=== PATIENT | female | born 1995 | race Caucasian/White ===

== ENCOUNTER → 2016-12-01 | Outpatient (CLI) | payer BC ==
[~2016-12-01] MED LIST: AMOX250C3 PO; AZEL0.15 NAE; BCPILLS PO; CETI10TA10 PO; FLUT0.15 NAE; ONDA4TAB10 SL; PANT40TA PO; PREDPOW63 PO
== END | disposition home or self-care (01) ==
LOC: C.RDSM 09:00
PROVIDERS: ATTEND Physical Medicine & Rehabilitation
DX: M54.5 Low back pain (principal)

== ENCOUNTER 2016-12-18 16:02 | Emergency (ER) | payer BC ==
[~2016-12-18] VITALS: Ht 165.1 cm; Wt 49.7 kg
[~2016-12-18 16:02] MED LIST changes: -AMOX250C3 PO; -AZEL0.15 NAE; -BCPILLS PO; -CETI10TA10 PO; -ONDA4TAB10 SL; -PANT40TA PO
[2016-12-18 16:19] VITALS: Ht 165.1 cm; Wt 49.7 kg
[2016-12-18 16:43] VITALS: O2SAT 95
[2016-12-18] MEDS ORDERED: SODIUM CHLORIDE 0.9% 500ML 500 ML IV STA (17:13)
[2016-12-18] MEDS ORDERED: SODIUM CHLORIDE 0.9% 1000ML 1,000 ML IV STA (17:13)
[2016-12-18 17:24] LABS: BASO % 0.4 %; BASO ABS # 0.02 K/uL (0-0.2); COMPLETE YES; EOS % 4.4 %; HEMATOCRIT 42.3 % (37-47); IG% 0.5 %; LYMPH % 18.8 %; LYMPH ABS # 1.07 K/uL (1.2-3.4); MEAN CELL VOLUME 91.8 fL (80-100); MEAN CORPUSCULAR HEMOGLOBIN 31.9 pg (25-34); MEAN CORPUSCULAR HGB CONC 34.8 g/dl (32-36); MEAN PLATELET VOLUME 11.4 fL (7.4-10.4); MONO % 10.4 %; NEUT % 65.5 %; PLATELET COUNT 233 K/uL (130-400); RED BLOOD COUNT 4.61 M/uL (4.2-5.4); WHITE BLOOD COUNT 5.69 K/uL (4.8-10.8)
[2016-12-18 17:33] LABS: URINE APPEARANCE CLOUDY (CLEAR); URINE BILIRUBIN NEG (NEG); URINE COLOR YELLOW; URINE EPITHELIAL CELL AUTO >30 /lpf (0-5); URINE NITRITE NEG (NEG); URINE PH >= 9.0 (4.5-7.5); URINE SPECIFIC GRAVITY 1.024 (1.000-1.030); UROBILINOGEN NEG (NEG); ZZUR CULT IF INDIC CLEAN CATCH YES
[2016-12-18 17:33] LABS: ALT/SGPT 16 U/L (12-78); AST/SGOT 12 U/L (15-37); BLOOD UREA NITROGEN 8 mg/dl (7-18); BUN/CREATININE RATIO 10.2 (10-20); CALCIUM 8.7 mg/dl (8.5-10.1); CARBON DIOXIDE 29 mmol/L (21-32); CHLORIDE 104 mmol/L (98-107); CREATININE 0.74 mg/dl (0.60-1.20); GLUCOSE 81 mg/dl (70-99); MAGNESIUM 2.2 mg/dl (1.8-2.4); POTASSIUM 3.8 mmol/L (3.5-5.1); SODIUM 142 mmol/L (136-145)
--- NOTE | 2016-12-18 17:33 | EMERGENCY ROOM VISIT NOTE ---
History Report prepared by Harshad: Timothy Candelaria Under the Supervision of: Dr. Erika Dawn M.D. First contact with patient: 16:59 Chief Complaint: CHEST PAIN Stated Complaint: SOB,TIGHTNESS IN CHEST,EAR INFECTION, Nursing Triage Summary: chest pain, epigastric region started yesterday nausea hurts to take a deep breath History of Present Illness The patient is a 21 year old female who presents to the Emergency Room with complaints of intermittent chest pain beginning one day prior to arrival. She describes the pain as sharp and currently rates her discomfort as a 1/10 in severity. The patient associates intermittent shortness of breath and a cough with today's symptoms. She notes her chest pain worsens with deep breathing. The patient states she has had two ear infections over the past two weeks and has been on antibiotics and then prednisone. She notes she is currently on amoxicillin. The patient states she is on control. She denies being a smoker and having recent long travel. The patient notes she has a history of stomach issues and nausea. She states she has a history of back pain, as well. The patient denies a chance of . 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 A total of 10 systems reviewed and were otherwise negative. Past Medical & Surgical Surgical Problems: (1) No pertinent past surgical history Family History Diabetes mellitus Hypertension Lung disease Social History Smoking Status: Never Smoker Alcohol Use: none Drug Use: none Marital Status: single Housing Status: lives with roommate Occupation Status: [employer] student Current/Historical Medications Scheduled Amoxicillin (Amoxil), 1 CAP PO TID Control Pills ( Control Pills), 1 TAB PO HS Cetirizine Hcl (Zyrtec), 10 MG PO DAILY Pantoprazole (Protonix), 40 MG PO DAILY Scheduled PRN Fluticasone Propionate (Nasal) (Flonase Allergy Relief), 100 MCG ERICK DAILY PRN for PRN Allergies Coded Allergies: Latex (Verified Allergy, Unknown, ANAPHYLAXIS, 12/21/16) NO KNOWN DRUG ALLERGIES (Verified Allergy, Unknown, ., 12/18/16) Physical Exam Vital Signs Date Time Temp Pulse Resp B/P Pulse Ox O2 Delivery O2 Flow Rate FiO2 12/18/16 19:49 36.9 84 24 125/64 98 12/18/16 19:47 84 125/64 98 Room Air 12/18/16 19:12 97 132/78 100 Room Air 12/18/16 17:13 132/70 12/18/16 17:02 84 24 12/18/16 16:56 83 12/18/16 16:43 95 Room Air 12/18/16 16:19 100 Room Air 12/18/16 16:19 36.9 95 20 108/75 100 Room Air Physical Exam Vital signs reviewed. General: Well-appearing female, in no significant distress. HEENT: No scleral icterus, PERRLA, neck supple. Atraumatic. Cardiovascular: Regular rate and rhythm, no extra sounds. Pulmonary: Coarse breath sounds to the right lower lung post, normal work of breathing. Abdomen: Mild epigastric tenderness. Soft, nondistended, positive bowel sounds. Musculoskeletal: Atraumatic, no peripheral edema. Neurologic: Patient awake alert and oriented x 3, full strength in all 4 extremities. Cranial nerves 2 through 12 grossly intact. Skin: Warm, dry, no rash Medical Decision & Procedures ER Provider Diagnostic Interpretation: X-ray results as stated below per interpretation by me and the radiologist: CHEST ONE VIEW PORTABLE HISTORY: Right-sided chest pain. COMPARISON: Chest 08/02/2014. FINDINGS: The lungs are clear. Cardiac silhouette is normal in size. No pleural effusions. No pneumothorax. IMPRESSION: No acute process. Electronically signed by: Jason Rosas M.D. 12/18/2016 6:05 PM Laboratory Results 12/18/16 16:40 Red Blood Count 4.61, Mean Corpuscular Volume 91.8, Mean Corpuscular Hemoglobin 31.9, Mean Corpuscular Hemoglobin Concent 34.8, Mean Platelet Volume 11.4, Neutrophils (%) (Auto) 65.5, Lymphocytes (%) (Auto) 18.8, Monocytes (%) (Auto) 10.4, Eosinophils (%) (Auto) 4.4, Basophils (%) (Auto) 0.4, Neutrophils # (Auto ) 3.73, Lymphocytes # (Auto) 1.07, Monocytes # (Auto) 0.59, Eosinophils # (Auto ) 0.25, Basophils # (Auto) 0.02 12/18/16 16:40 Test 12/18/16 16:40 12/18/16 17:13 12/18/16 17:22 White Blood Count 5.69 K/uL (4.8-10.8) Red Blood Count 4.61 M/uL (4.2-5.4) Hemoglobin 14.7 g/dL (12.0-16.0) Hematocrit 42.3 % (37-47) Mean Corpuscular Volume 91.8 fL (80-100) Mean Corpuscular Hemoglobin 31.9 pg (25-34) Mean Corpuscular Hemoglobin Concent 34.8 g/dl (32-36) Platelet Count 233 K/uL (130-400) Mean Platelet Volume 11.4 fL (7.4-10.4) Neutrophils (%) (Auto) 65.5 % Lymphocytes (%) (Auto) 18.8 % Monocytes (%) (Auto) 10.4 % Eosinophils (%) (Auto) 4.4 % Basophils (%) (Auto) 0.4 % Neutrophils # (Auto) 3.73 K/uL (1.4-6.5) Lymphocytes # (Auto) 1.07 K/uL (1.2-3.4) Monocytes # (Auto) 0.59 K/uL (0.11-0.59) Eosinophils # (Auto) 0.25 K/uL (0-0.5) Basophils # (Auto) 0.02 K/uL (0-0.2) RDW Standard Deviation 43.0 fL (36.4-46.3) RDW Coefficient of Variation 12.9 % (11.5-14.5) Immature Granulocyte % (Auto) 0.5 % Immature Granulocyte # (Auto) 0.03 K/uL (0.00-0.02) Anion Gap 9.0 mmol/L (3-11) Est Creatinine Clear Calc Drug Dose 94.4 ml/min Estimated GFR () 134.2 Estimated GFR (Non- 115.8 BUN/Creatinine Ratio 10.2 (10-20) Calcium Level 8.7 mg/dl (8.5-10.1) Magnesium Level 2.2 mg/dl (1.8-2.4) Total Bilirubin 0.3 mg/dl (0.2-1) Direct Bilirubin < 0.1 mg/dl (0-0.2) Aspartate Amino Transf (AST/SGOT) 12 U/L (15-37) Alanine Aminotransferase (ALT/SGPT) 16 U/L (12-78) Alkaline Phosphatase 47 U/L (45-117) Total Protein 7.7 gm/dl (6.4-8.2) Albumin 4.3 gm/dl (3.4-5.0) Lipase 129 U/L (73-393) Human Chorionic Gonadotropin, Qual NEG (NEG) Urine Color YELLOW Urine Appearance CLOUDY (CLEAR) Urine pH >= 9.0 (4.5-7.5) Urine Specific [place] 1.024 (1.000-1.030) Urine Protein NEG (NEG) Urine Glucose (UA) NEG (NEG) Urine Ketones NEG (NEG) Urine Occult Blood NEG (NEG) Urine Nitrite NEG (NEG) Urine Bilirubin NEG (NEG) Urine Urobilinogen NEG (NEG) Urine Leukocyte Esterase SMALL (NEG) Urine WBC (Auto) 10-30 /hpf (0-5) Urine RBC (Auto) 0-4 /hpf (0-4) Urine Hyaline Casts (Auto) /lpf (0-5) Urine Epithelial Cells (Auto) >30 /lpf (0-5) Urine Bacteria (Auto) 2+ (NEG) Urine Pathogenic Casts /lpf (0) Urine Mucus PRESENT (NONE PRSENT) Bedside D-Dimer 330 ng/mlFEU (0-450) Bedside Troponin I 0.000 ng/ml (0-0.045) Date/Time Source Procedure Growth Status 12/18/16 17:13 Urine , Clean Catch Urine Culture - Final Corynbact.sp Not Urealyticum Complete Laboratory results per my review. Medications Administered Medications (Trade) Dose Ordered Sig/Adin Route Start Time Stop Time Status Last Admin Dose Admin Sodium Chloride 500 ml @ 999 mls/hr Q31M STAT IV 12/18/16 17:13 12/18/16 17:43 DC 12/18/16 17:25 999 MLS/HR Sodium Chloride (Nss 1000ml) 1,000 ml @ 125 mls/hr Q8H STAT IV 12/18/16 17:13 12/18/16 20:03 DC 12/18/16 17:25 125 MLS/HR Albuterol/ Ipratropium (Duoneb) 3 ml NOW STAT INH 12/18/16 17:46 12/18/16 17:47 DC 12/18/16 17:54 3 ML Pantoprazole Sodium (Protonix Tab) 40 mg NOW STAT PO 12/18/16 17:46 12/18/16 17:47 DC 12/18/16 17:54 40 MG ECG Indication: chest pain Rate (beats per minute): 70 Rhythm: normal sinus (with sinus arrhythmia) Findings: nonspecific-ST abn, no acute ischemic change ED Course 1711: Past medical records reviewed. The patient was evaluated in room A4B. A complete history and physical examination was performed. 1712: Ordered Sodium Chloride 1,000 ml @ 125 mls/hr IV, Sodium Chloride 500 ml @ 999 mls/hr IV. 1745: Ordered Protonix Tab 40 mg PO, Duoneb 3 ml INH. 1936: Upon reevaluation, the patient appeared to have improvement of her symptoms. I discussed findings with her. She verbalized agreement of the treatment plan. The patient was discharged home. Medical Decision Differential diagnosis: Acute coronary syndrome, gastritis, peptic ulcer disease, pulmonary embolus, aortic dissection, musculoskeletal pain, pneumonia, pleural effusion, pneumothorax This patient was evaluated and appeared to be in no significant distress. 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 EKG reveals no evidence of acute ischemic change or ectopy. Patient was hydrated with normal saline solution. X-ray of the chest is negative for infiltrate. Patient's laboratory work is fairly unrevealing. I suspect the patient is suffering from a gastritis related to her recent antibiotic use and prednisone therapy. She was placed on Protonix 40 mg daily for 1 month. She'll avoid NSAIDs and alcohol. She was advised of the findings and agrees. She will follow-up with her primary care physician for reevaluation this week and return to the ER for worsening of symptoms or any medical concerns. Impression Primary Impression: Epigastric discomfort Scribe Attestation The scribe's documentation has been prepared under my direction and personally reviewed by me in its entirety. I confirm that the note above accurately reflects all work, treatment, procedures, and medical decision making performed by me. Departure Information Dispostion Home / Self-Care Prescriptions Pantoprazole (Protonix) 40 Mg Tab 40 MG PO DAILY, #30 TAB Prov: Erika Dawn M.D. 12/18/16 Referrals No Doctor, Assigned (PCP) Forms HOME CARE DOCUMENTATION FORM, IMPORTANT VISIT INFORMATION Patient Instructions My [facility] Additional Instructions Diagnosis: Epigastric pain Protonix 40 mg daily for 30 days. Minimize ibuprofen/Aleve/aspirin. Avoid alcohol. Follow-up with your physician this week for reevaluation and return to the ER for worsening of symptoms or any medical concerns.
[2016-12-18 17:36] LABS: ALKALINE PHOSPHATASE 47 U/L (45-117)
[2016-12-18] MEDS ORDERED: AMOX250C3 PO (17:40)
[2016-12-18 17:42] LABS: MANUAL MICROSCOPIC REQUIRED? NO; REVIEW REQ? YES; SULFASALICYLIC ACID NEG (NEG)
[2016-12-18 17:46] LABS: URINE MUCUS PRESENT (NONE PRSENT)
[2016-12-18] MEDS ORDERED: PANTOprazole SOD 40 MG TAB PO STA (17:46)
[2016-12-18] MEDS ORDERED: ALBUT/IPRATROP 3MG/0.5MG NEB 3 ML VIAL INH STA (17:46)
[2016-12-18 17:47] LABS: PREG INTERNAL NEGATIVE QC NEG CLEAR BACKGROUND; PREG INTERNAL POSITIVE QC POS CONTROL LINE
--- NOTE | 2016-12-18 18:06 | DIAGNOSTIC IMAGING REPORT ---
CHEST ONE VIEW PORTABLE HISTORY: Right-sided chest pain. COMPARISON: Chest 08/02/2014. FINDINGS: The lungs are clear. Cardiac silhouette is normal in size. No pleural effusions. No pneumothorax. IMPRESSION: No acute process. Electronically signed by: Jason Rosas M.D. 12/18/2016 6:05 PM Dictated Date/Time: 12/18/2016 6:04 PM
[2016-12-18] MEDS ORDERED: PANT40TA PO (19:39)
[2016-12-18 19:49] VITALS: BP 125/64; PULSE 84; TEMP 36.9; O2SAT 98
--- NOTE | 2016-12-20 15:52 | Pharmacy Progress Note ---
ED Pharmacist Culture FollowUp Date of Service: Dec 20, 2016. Corynebacterium at low/medium CFU/mL growing from the patient's urine culture. No urinary symptoms mentioned. UA with > 30 epithelial cells. Likely contaminant. No intervention required. Case discussed with Dr. Dawn.
[2017-02-22] MEDS ORDERED: BCPILLS PO (15:07)
== END 2016-12-18 19:50 | disposition home or self-care (01) ==
LOC: C.EDB 16:04 → C.EDA 19:50
DX: R10.13 Epigastric pain (principal); R06.02 Shortness of breath; Z79.899 Other long term (current) drug therapy; Z79.3 Long term (current) use of hormonal contraceptives; Z83.3 Family history of diabetes mellitus; Z82.49 Family history of ischemic heart disease and other diseases of the circulatory system

== ENCOUNTER → 2016-12-21 | Day surgery (SDC) | payer BC ==
[2016-12-13 12:02] VITALS: Ht 165.1 cm; Wt 50.0 kg
[~2016-12-21] VITALS: Ht 165.1 cm; Wt 50.0 kg
[~2016-12-21] MED LIST changes: +AMOX250C3 PO; +AZEL0.15 NAE; +BCPILLS PO; +BUPIVACAINE 0.25% 2.5MG/ML PF 10 ML VIAL INFIL ONE; +CETI10TA10 PO; +LIDOCAINE HCL 1% MPF 5 ML VIAL ONE; +ONDA4TAB10 SL; +PANT40TA PO; -PREDPOW63 PO
--- NOTE | 2016-12-21 13:45 | History & Physical Bridge - SC ---
H&P Re-Evaluation Bridge Note: I have examined the patient, reviewed the History & Physical and in the interval since the performance of the History & Physical I have noted the following changes of clinical significance: No changes noted
[2016-12-21 14:10] VITALS: TEMP 36.6
--- NOTE | 2016-12-21 14:15 | Discharge Instructions ---
Discharge Instructions Visit Reason for Visit: Low Back Pain And Sacrococcygeal Disorders Discharge Discharge Diagnosis / Problem: coccyx pain Discharge Goals Goal(s): Decrease discomfort, Improve function Activity Recommendations Activity Limitations: resume your previous activity Anesthesia . Post Anesthesia Instructions: If you have had General Anesthesia or IV Sedation: * Do not drive today. * Resume driving when surgeon permits. * Do not make important decisions or sign legal documents today. * Call surgeon for: 1. Temperature elevations greater than 101 degrees F. 2. Uncontrollable pain. 3. Excessive bleeding. 4. Persistent nausea and vomiting. 5. Medication intolerance (nausea, vomiting or rash). * For nausea and vomiting use only clear liquids such as: tea, soda, bouillon until nausea subsides, then gradually increase diet as tolerated. * If you have any concerns or questions, call your surgeon's office. If physician is unavailable and it is an emergency, call 911 or go to the nearest emergency room. . Diet Recommendations Recommended Home Diet: resume previous diet Procedures Procedures Performed: SACROCOCCYGEAL LIGAMENT INJECTION Pending Studies Studies pending at discharge: no Medical Emergencies . Who to Call and When: Medical Emergencies: If at any time you feel your situation is an emergency, please call 911 immediately. . Non-Emergent Contact Non-Emergency issues call your: Specialist . . "Provider Documentation" section prepared by Jaren Pompa.
[2016-12-21 14:20] VITALS: BP 105/69; PULSE 79; O2SAT 98
--- NOTE | 2016-12-21 14:26 | OPERATIVE REPORT ---
DATE OF OPERATION: 12/21/2016 PREOPERATIVE DIAGNOSIS: Coccydynia. POSTOPERATIVE DIAGNOSIS: Same. PROCEDURE: Sacrococcygeal ligament injection under fluoroscopic guidance. SURGEON: Dr. Jaren Pompa. INDICATIONS: The patient is a 21-year-old female who has had chronic coccydynia for some time. She has tried unsuccessfully conservative treatment. She presents today for sacrococcygeal ligament injection to provide her with relief of the significant pain that she is experiencing related to the sacrococcygeal ligament. PHYSICAL EXAMINATION: Pleasant female seated comfortably. She has point tender to palpation over the tip of her coccyx. Other areas are nontender. Neuromuscularly she is intact. CONSENT: Verbal and written consent was obtained from the patient. Risks and benefits were reviewed. Risks include but are not limited to abscess and allergic reaction. The patient wishes to proceed. PROCEDURE: The patient was taken back to the special procedures room of the [facility] where she was maintained in a prone position. Backside was cleansed with Betadine x3 and a dry sterile dressing was applied. Fluoroscope was used to identify laterally the sacrococcygeal ligament junction. The overlying skin was anesthetized with 2 mL of lidocaine 1% with a 25 gauge 1.5-inch needle. A 25 gauge 3.5 inch spinal needle was then directed into the sacrococcygeal junction and she was then injected with 1 mL of bupivacaine 0.25%, 40 mg of Depo-Medrol. Injection was well tolerated. DISPOSITION: 1. The patient is taken out into the discharge recovery area where she will be discharged home once discharge criteria have been met. 2. Follow up in the [facility] office in 2-4 weeks. I attest to the content of the Intraoperative Record and any orders documented therein. Any exceptio ns are noted below.
== END | disposition home or self-care (01) ==
LOC: X.SURG 12:53
PROVIDERS: ATTEND Physical Medicine & Rehabilitation
DX: M53.3 Sacrococcygeal disorders, not elsewhere classified (principal)

== ENCOUNTER 2017-02-22 15:21 | Emergency (ER) | payer BC ==
[~2017-02-22] VITALS: Ht 162.6 cm; Wt 49.9 kg
[~2017-02-22 15:21] MED LIST changes: -AZEL0.15 NAE; -BUPIVACAINE 0.25% 2.5MG/ML PF 10 ML VIAL INFIL ONE; -CETI10TA10 PO; -LIDOCAINE HCL 1% MPF 5 ML VIAL ONE; -ONDA4TAB10 SL
[2017-02-22 15:28] VITALS: Ht 162.6 cm; Wt 49.9 kg
[2017-02-22] MEDS ORDERED: SODIUM CHLORIDE 0.9% 1000ML 1,000 ML IV STA ×2 (16:17→17:26)
[2017-02-22] MEDS ORDERED: AZEL0.15 NAE (16:21)
[2017-02-22 16:45] VITALS: TEMP 37.1
[2017-02-22 17:00] LABS: BASO % 0.5 %; BASO ABS # 0.04 K/uL (0-0.2); COMPLETE YES; EOS % 1.4 %; HEMATOCRIT 36.9 % (37-47); IG% 0.3 %; LYMPH % 20.1 %; LYMPH ABS # 1.48 K/uL (1.2-3.4); MEAN CELL VOLUME 89.1 fL (80-100); MEAN CORPUSCULAR HEMOGLOBIN 30.2 pg (25-34); MEAN CORPUSCULAR HGB CONC 33.9 g/dl (32-36); MEAN PLATELET VOLUME 10.7 fL (7.4-10.4); MONO % 5.8 %; NEUT % 71.9 %; PLATELET COUNT 271 K/uL (130-400); RED BLOOD COUNT 4.14 M/uL (4.2-5.4); WHITE BLOOD COUNT 7.37 K/uL (4.8-10.8)
[2017-02-22] MEDS ORDERED: ONDA4TAB10 SL (17:10)
[2017-02-22 17:20] LABS: CALCIUM 8.7 mg/dl (8.5-10.1); CREATININE 0.7 mg/dl (0.60-1.20); POTASSIUM 3.7 mmol/L (3.5-5.1)
[2017-02-22 17:24] LABS: URINE APPEARANCE CLEAR (CLEAR); URINE BILIRUBIN NEG (NEG); URINE COLOR YELLOW; URINE NITRITE NEG (NEG); URINE SPECIFIC GRAVITY 1.025 (1.000-1.030); UROBILINOGEN NEG (NEG); ZZUR CULT IF INDIC CLEAN CATCH NO
[2017-02-22 17:30] LABS: MANUAL MICROSCOPIC REQUIRED? NO; REVIEW REQ? NO
[2017-02-22 17:30] LABS: ALB/GLOB RATIO 1.1 (0.9-2); THYROID STIMULATING HORMONE 0.589 uIu/ml (0.300-4.500)
[2017-02-22] MEDS ORDERED: CETI10TA10 PO (17:40)
--- NOTE | 2017-02-22 19:08 | EMERGENCY ROOM VISIT NOTE ---
History First contact with patient: 16:03 Chief Complaint: PAIN (GENERALIZED) Stated Complaint: MAY BE EXPERIENCING TOXIC SHOCK HX OF History of Present Illness The patient is a 21 year old female who presents to the Emergency Room with complaints of possible toxic shock syndrome. The patient states that she has a history of toxic shock syndrome at age 14. She states they are unsure what the cause was. She reports that she stopped using tampons after that illness. She states that she started using them again a few months ago. She reports that over the past few days, the tampons has not had as much blood on them as she expected. She reports she has felt tired and has had some mild body aches. She states that her hands and feet have been itchy. She reports that she has chronic issues with nausea, but this has been worse over the past 2 days. She reports her period ended 2 days ago. She does report she has had shortness of breath with exertion for the past several days. She does take control pills. She is not a smoker. No history or family history of blood clots. No recent long trips. The patient denies any headache, neck pain, chest pain, abdominal pain or vomiting. She denies any urinary symptoms. She denies any abnormal vaginal discharge or bleeding. Review of Systems A complete 10-point Review of Systems was discussed with the patient, with pertinent positives and negatives listed in the History of Present Illness. All remaining Review of Systems questions can be considered negative unless otherwise specified. Past Medical/Surgical History Surgical Problems: (1) No pertinent past surgical history Family History Diabetes mellitus Hypertension Lung disease Social History Smoking Status: Never Smoker Alcohol Use: none Drug Use: none Marital Status: single Housing Status: lives with roommate Occupation Status: [employer] student Current/Historical Medications Scheduled Azelastine Hcl (Astepro), 2 SPRY ERICK BID Control Pills ( Control Pills), 1 TAB PO HS Cetirizine Hcl (Zyrtec), 10 MG PO HS Scheduled PRN Ondasetron Odt (Zofran Odt), 4 MG SL Q8 PRN for Nausea Allergies Coded Allergies: Latex (Verified Allergy, Unknown, ANAPHYLAXIS, 12/21/16) NO KNOWN DRUG ALLERGIES (Verified Allergy, Unknown, ., 12/18/16) Physical Exam Vital Signs Date Time Temp Pulse Resp B/P Pulse Ox O2 Delivery O2 Flow Rate FiO2 02/22/17 19:25 73 16 123/64 100 02/22/17 17:42 97/72 02/22/17 16:45 37.1 68 16 96/69 100 Room Air 02/22/17 15:28 36.8 85 17 143/85 98 Room Air Physical Exam VITALS: Vitals are noted on the nurse's note and reviewed by myself. Vital signs stable. GENERAL: This is a 21-year-old female, in no acute distress, nondiaphoretic, well-developed well-nourished. SKIN: The skin was without rashes. EARS: External auditory canals clear, tympanic membranes pearly sinha without erythema or effusion bilaterally. EYES: Pupils equal round and reactive to light and accommodation. Conjunctivae without injection, sclerae without icterus. Extraocular movements intact. MOUTH: Mucous membranes moist. Tonsils are not enlarged. Pharynx without erythema or exudate. NECK: Supple without nuchal rigidity. No lymphadenopathy. No thyromegaly. HEART: Regular rate and rhythm without murmurs gallops or rubs. LUNGS: Clear to auscultation bilaterally without wheezes, rales or rhonchi. ABDOMEN: Positive bowel sounds x 4. Soft, nontender to palpation. MUSCULOSKELETAL: Full range of motion throughout. Strength 5/5 throughout. NEURO: Patient was alert and oriented to person place and time. Normal sensation to light and sharp touch. No focal neurological deficits. Medical Decision & Procedures Laboratory Results 02/22/17 16:40 Red Blood Count 4.14, Mean Corpuscular Volume 89.1, Mean Corpuscular Hemoglobin 30.2, Mean Corpuscular Hemoglobin Concent 33.9, Mean Platelet Volume 10.7, Neutrophils (%) (Auto) 71.9, Lymphocytes (%) (Auto) 20.1, Monocytes (%) (Auto) 5.8, Eosinophils (%) (Auto) 1.4, Basophils (%) (Auto) 0.5, Neutrophils # (Auto) 5.30, Lymphocytes # (Auto) 1.48, Monocytes # (Auto) 0.43, Eosinophils # (Auto) 0.10, Basophils # (Auto) 0.04 02/22/17 16:40 Test 02/22/17 16:40 02/22/17 16:52 02/22/17 17:54 White Blood Count 7.37 K/uL (4.8-10.8) Red Blood Count 4.14 M/uL (4.2-5.4) Hemoglobin 12.5 g/dL (12.0-16.0) Hematocrit 36.9 % (37-47) Mean Corpuscular Volume 89.1 fL (80-100) Mean Corpuscular Hemoglobin 30.2 pg (25-34) Mean Corpuscular Hemoglobin Concent 33.9 g/dl (32-36) Platelet Count 271 K/uL (130-400) Mean Platelet Volume 10.7 fL (7.4-10.4) Neutrophils (%) (Auto) 71.9 % Lymphocytes (%) (Auto) 20.1 % Monocytes (%) (Auto) 5.8 % Eosinophils (%) (Auto) 1.4 % Basophils (%) (Auto) 0.5 % Neutrophils # (Auto) 5.30 K/uL (1.4-6.5) Lymphocytes # (Auto) 1.48 K/uL (1.2-3.4) Monocytes # (Auto) 0.43 K/uL (0.11-0.59) Eosinophils # (Auto) 0.10 K/uL (0-0.5) Basophils # (Auto) 0.04 K/uL (0-0.2) RDW Standard Deviation 43.0 fL (36.4-46.3) RDW Coefficient of Variation 13.2 % (11.5-14.5) Immature Granulocyte % (Auto) 0.3 % Immature Granulocyte # (Auto) 0.02 K/uL (0.00-0.02) Anion Gap 7.0 mmol/L (3-11) Est Creatinine Clear Calc Drug Dose 100.1 ml/min Estimated GFR () 143.5 Estimated GFR (Non- 123.9 BUN/Creatinine Ratio 15.0 (10-20) Calcium Level 8.7 mg/dl (8.5-10.1) Total Bilirubin 0.3 mg/dl (0.2-1) Aspartate Amino Transf (AST/SGOT) 15 U/L (15-37) Alanine Aminotransferase (ALT/SGPT) 18 U/L (12-78) Alkaline Phosphatase 56 U/L (45-117) Total Protein 7.2 gm/dl (6.4-8.2) Albumin 3.7 gm/dl (3.4-5.0) Globulin 3.5 gm/dl (2.5-4.0) Albumin/Globulin Ratio 1.1 (0.9-2) Thyroid Stimulating Hormone (TSH) 0.589 uIu/ml (0.300-4.500) Urine Color YELLOW Urine Appearance CLEAR (CLEAR) Urine pH 7.0 (4.5-7.5) Urine Specific [place] 1.025 (1.000-1.030) Urine Protein NEG (NEG) Urine Glucose (UA) NEG (NEG) Urine Ketones NEG (NEG) Urine Occult Blood NEG (NEG) Urine Nitrite NEG (NEG) Urine Bilirubin NEG (NEG) Urine Urobilinogen NEG (NEG) Urine Leukocyte Esterase NEG (NEG) Urine Test NEG (NEG) D-Dimer < 190 ug/L FEU (0-500) Medications Administered Medications (Trade) Dose Ordered Sig/Adin Route Start Time Stop Time Status Last Admin Dose Admin Sodium Chloride 1,000 ml @ 999 mls/hr Q1H1M STAT IV 02/22/17 16:17 02/22/17 17:17 DC 02/22/17 16:48 999 MLS/HR Sodium Chloride (Nss 1000ml) 1,000 ml @ 999 mls/hr Q1H1M STAT IV 02/22/17 17:26 02/22/17 18:26 DC 02/22/17 17:36 999 MLS/HR ED Course The patient was evaluated as above. Labs were drawn and IV access was obtained. Patient was medicated with 1 L normal saline solution. Discharge instructions were reviewed with the patient. The patient verbalized understanding of my assessment and treatment plan and was discharged home in good condition. Medical Decision Differential diagnosis includes infection, metabolic abnormality, pulmonary embolism, toxic shock syndrome, among others. The patient is a 21-year-old female who presents today with multiple complaints and concern for possible toxic shock syndrome. Labs revealed no leukocytosis, anemia or concerning electrolyte abnormalities. D-dimer was not elevated. Urinalysis was not suggestive of infection. Urine was negative. A feel the patient's symptoms are likely secondary to anxiety given her history of toxic shock syndrome. I reassured her and recommended follow-up with [facility]. She will see them in or return for worsening symptoms. Based on the patient's presentation and work up, I feel the patient is stable for outpatient treatment. The patient was educated to the emergency department for any worsening of their current condition or new/concerning symptoms. She will follow up with [facility]. Impression Primary Impression: Fatigue Departure Information Dispostion Home / Self-Care Condition GOOD Referrals No Doctor, Assigned (PCP) Patient Instructions My [facility] Additional Instructions Follow-up with [facility] within 48 hours for further evaluation of your symptoms. Rest and drink plenty of fluids. Return to the emergency department with any worsening or new/concerning symptoms. Problem Qualifiers Primary Impression: Fatigue Fatigue type: unspecified Qualified Codes: R53.83 - Other fatigue
[2017-02-22 19:25] VITALS: BP 123/64; PULSE 73; O2SAT 100
== END 2017-02-22 19:26 | disposition home or self-care (01) ==
LOC: C.EDB 15:23 → C.EDC 19:26
DX: R53.83 Other fatigue (principal); Z91.040 Latex allergy status; Z83.3 Family history of diabetes mellitus; Z82.49 Family history of ischemic heart disease and other diseases of the circulatory system